=== PATIENT | male | born 1975 | race Caucasian/White ===

== ENCOUNTER 2018-09-05 11:00 | Emergency (ER) | payer OTHER ==
[~2018-09-05] VITALS: Ht 167.6 cm; Wt 72.6 kg
[~2018-09-05 11:00] MED LIST: ALBU90OI INH; ANTIHISTAMINE; CLAR500 PO; CYCL10 PO; DILT120 PO; DOXY100 PO; ERYT500 PO; HYDACE10B PO; HYDACE5 PO; HYDGUAL120 PO; IBUP800 PO; NAPR500 PO; NAPR550 PO; PENVK500 PO; PRED20 PO; PROCODE120 PO; PROM25 PO; RANI150 PO; RXHYDACE PO; RXPENVK250 PO
[2018-09-05] MEDS ORDERED: Lotrimin AF113 GM TOP (12:02)
[2018-09-05] MEDS ORDERED: CEPH500 PO (12:02)
== END 2018-09-05 12:42 | disposition home or self-care (01) ==
LOC: ER 11:00
DX: S90.822A Blister (nonthermal), left foot, initial encounter (principal); S90.821A Blister (nonthermal), right foot, initial encounter; L03.116 Cellulitis of left lower limb; L03.115 Cellulitis of right lower limb; B35.3 Tinea pedis; I10 Essential (primary) hypertension; F32.9 Major depressive disorder, single episode, unspecified; F17.200 Nicotine dependence, unspecified, uncomplicated; X58.XXXA Exposure to other specified factors, initial encounter
CPT/HCPCS: 99283